=== PATIENT | female | born 1965 | race Caucasian/White ===

== ENCOUNTER 2021-08-10 11:04 | Emergency (ER) | payer OTHER ==
[2021-08-10 12:02] LABS: Absolute Neutrophil Ct (ANC) 2.44 (1.4-6.9); BASOPHIL % 0.7 % (0.0-0.4); Basophil (Absolute #) 0.03 (0-0.4); Eosinophil % 3.3 % (0.00-5.0); Eosinophil (Absolute #) 0.14 (0-0.5); Hematocrit 39.9 % (35-47); Hemoglobin 13.4 gm/dl (12.0-16.0); Lymphocyte (Absolute #) 0.93 (1.0-4.6); Lymphocytes % 21.7 % (24.0-44.0); Mean Corpuscular Hemoglobin 34.3 pg (26-32); Mean Corpuscular Hgb Concent. 33.6 g/dl (32-36); Mean Platelet Volume 9.7 fl (7.5-11.0); Monocyte (Absolute #) 0.74 (0.0-1.3); Monocytes % 17.3 % (0.0-12.0); Platelet Count 111 K/mm3 (150-450); Red Blood Count 3.91 M/mm3 (4.1-5.4); Red Cell Distribution Width 14.9 % (11.5-14.0); White Blood Count 4.3 K/mm3 (4.0-10.5)
[2021-08-10 12:20] LABS: ALBUMIN 2.7 g/dL (3.5-5.0); ALKALINE PHOSPHATASE 142 U/L (38-126); ANION GAP 10.2 MEQ/L (5-15); BLOOD UREA NITROGEN 7 mg/dL (7-17); CHLORIDE 105 mmol/L (98-107); Calcium 8.6 mg/dL (8.4-10.2); Carbon Dioxide 26 mmol/L (22-30); Creatinine 1 0.39 mg/dL (0.52-1.04); EST GLOMERULAR FILTRATION RATE > 60.0 ML/MIN; Glucose 92 mg/dL (74-106); LIPASE 220 U/L (23-300); MAGNESIUM 1.8 mg/dL (1.6-2.3); NT PRO BNP 73.1 pg/mL (0-900); Potassium 4.2 mmol/L (3.5-5.1); SGOT/AST 48 U/L (14-36); SGPT/ALT 31 U/L (0-35); SODIUM 137 mmol/L (137-145); Total Protein 6.1 g/dL (6.3-8.2)
[2021-08-10] MEDS ORDERED: Lasix 40 MG/4 ML IV ONE (13:09)
--- NOTE | 2021-08-10 13:13 | ERPHSYRPT ---
- History of Present Illness Time Seen by Provider: 08/10/21 11:50 Historian: patient Exam Limitations: no limitations Patient Subjective Stated Complaint: Pt states that she fell last month and ever since her abdomen has been swelling, Dr. Mims sent her for a CT in [place] yesterday and also and US at [facility] yesterday, US shows cirrhotic liver with 4 quadrant ascites, pt denies having any liver issues, on Saturday she weighed 284lbs and today she weighs 295 lbs and states that last month she weighed 252lbs Triage Nursing Assessment: Pt brought to the ER by her , hypertension, rates abdominal pain as 7/10 when she tries to move, +3 pitting edema to lower extremity, states that her abdomen hs grown 3x it's normal size in the past month, reports that it is getting harder to breath with her abdomen pushing up into her lungs, skin is hyperpigmented, eyes are clear and sclera is white Physician History: 56 years old female with history of hypertension, hyperlipidemia, diabetes mellitus presented in the ER with chief complaint of increasing generalized abdominal distention but some discomfort for the last 3 to 4 weeks. Patient reports she fell 4 weeks ago and later on noticed having worsening abdominal distention with swelling of bilateral lower extremities along with some heartburns and nausea without vomiting. She was seen outpatient and had ultrasound done which showed finding consistent with cirrhosis and some ascites and CT confirmed large ascites with cirrhosis and anasarca picture. Patient report because of increased abdominal girth she is having some shortness of breath with activity as well but denies any chest pain or palpitations. No fever or chills reported. Denies any history of alcohol abuse. No previous history of liver issues. Timing/Duration: week(s) (3), constant, gradual onset, worse Activities at Onset: activity, rest Quality: tightness Abdominal Pain Onset Location: generalized abdomen Pain Radiation: no radiation Severity of Pain-Max: moderate Severity of Pain-Current: moderate Modifying Factors: Improves With: nothing Associated Symptoms: heartburn, nausea, shortness of breath, weakness Previous symptoms: no prior history Allergies/Adverse Reactions: No Known Drug Allergies Allergy (Verified 08/10/21 11:31) Home Medications: Citalopram Hydrobromide 20 mg* [ceLEXa 20 MG] 20 mg PO DAILY 08/10/21 [History] Gabapentin [Neurontin] 600 mg PO HS 08/10/21 [History] Glimepiride 4 mg [Amaryl 4 mg] 6 mg PO DAILY 08/10/21 [History] Insulin Glargine,Hum.rec.anlog [Omer Lynch Solostar] 60 unit SQ HS 08/10/21 [History] Lisinopril 5 mg [Zestril 5 MG] 5 mg PO DAILY 08/10/21 [History] Metformin HCl 500 mg [Glucophage 500 MG] 1,000 mg PO BIDWM 08/10/21 [History] clonazePAM [Clonazepam] 1 mg PO HS 08/10/21 [History] Travel Risk - International Travel Have you traveled outside of the country in past 3 weeks: No - Coronavirus Screening Are you exhibiting any of the following symptoms?: No Close contact with a COVID-19 positive Pt in past 14-21 Days: No - Vaccine Status Have you recieved a Covid-19 vaccination: Yes Supervisor Mixing: [place] - Vaccination Dates Date of 2cond Vaccination (if applicable): 07/2021 - Review of Systems Constitutional: Fatigue, Weakness Eyes: No Symptoms Ears, Nose, & Throat: No Symptoms Respiratory: No Symptoms Cardiac: No Symptoms Abdominal/Gastrointestinal: Abdominal Pain, Nausea Genitourinary Symptoms: No Symptoms Musculoskeletal: Myalgias Skin: No Symptoms Neurological: No Symptoms Psychological: No Symptoms Endocrine: No Symptoms Hematologic/Lymphatic: No Symptoms Immunological/Allergic: No Symptoms - Past Medical History Pertinent Past Medical History: Yes Endocrine Medical History: Diabetes Type II - Past Surgical History Past Surgical History: Yes Gastrointestinal: Cholecystectomy Other Surgical History: ablasion - Social History Smoking Status: Current every day smoker Exposure to second hand smoke: Yes Drug Use: none Patient Lives Alone: No - Female History Hx Now: No - Nursing Vital Signs Nursing Vital Signs: Initial Vital Signs Temperature 98.6 F 08/10/21 11:19 Pulse Rate 84 08/10/21 11:19 Blood Pressure 152/71 08/10/21 11:19 O2 Sat by Pulse Oximetry 98 08/10/21 11:19 Pain Scale Pain Intensity 7 - Physical Exam General Appearance: no apparent distress, alert Eye Exam: PERRL/EOMI, eyes nml inspection Ears, Nose, Throat Exam: normal ENT inspection, pharynx normal Neck Exam: normal inspection, non-tender, full range of motion Respiratory Exam: normal breath sounds, lungs clear Cardiovascular Exam: regular rate/rhythm, normal heart sounds, edema Gastrointestinal/Abdomen Exam: soft, tenderness (Minimal generalized.), distention Back Exam: normal inspection, normal range of motion Extremity Exam: normal range of motion, pelvis stable, pedal edema Neurologic Exam: alert, oriented x 3, cooperative Skin Exam: normal color SpO2 Interpretation: normal SpO2: 98 O2 Delivery: Room Air Ordered Tests: Active Orders 24 hr Category Date Time Status CBC W DIFF Stat Lab 08/10/21 11:55 Completed CMP Stat Lab 08/10/21 11:55 Completed LIPASE Stat Lab 08/10/21 11:55 Completed MAGNESIUM Stat Lab 08/10/21 11:55 Completed NT PRO BNP Stat Lab 08/10/21 11:55 Completed PROTIME WITH INR Stat Lab 08/10/21 12:52 Completed PTT Stat Lab 08/10/21 12:52 Completed Medication Summary Discontinued Medications Generic Name Dose Route Start Last Admin Trade Name Jes PRN Reason Stop Dose Admin Furosemide 60 mg 08/10/21 13:09 08/10/21 13:17 Lasix 40 Mg/4 Ml IV 08/10/21 13:10 60 mg STAT ONE Administration Furosemide Confirm 08/10/21 13:14 Lasix 40 Mg/4 Ml Administered 08/10/21 13:15 Dose 80 mg .ROUTE .[place]-MED ONE Lab/Rad Data: Laboratory Result Diagrams 08/10/21 11:55 08/10/21 11:55 Laboratory Results 08/10/21 08/10/21 08/10/21 Range/Units 12:52 11:55 11:55 WBC (4.0-10.5) K/mm3 RBC (4.1-5.4) M/mm3 Hgb (12.0-16.0) gm/dl Hct (35-47) % MCV (78-100) fl MCH (26-32) pg MCHC (32-36) g/dl RDW (11.5-14.0) % Plt Count (150-450) K/mm3 MPV (7.5-11.0) fl Gran % (36.0-66.0) % Eos # (Auto) (0-0.5) Absolute Lymphs (auto) (1.0-4.6) Absolute Monos (auto) (0.0-1.3) Lymphocytes % (24.0-44.0) % Monocytes % (0.0-12.0) % Eosinophils % (0.00-5.0) % Basophils % (0.0-0.4) % Absolute Granulocytes (1.4-6.9) Basophils # (0-0.4) PT 18.6 H (9.4-12.5) SECONDS INR 1.58 (0.8-3.0) APTT 37.1 H (25.1-36.5) SECONDS Sodium 137 (137-145) mmol/L Potassium 4.2 (3.5-5.1) mmol/L Chloride 105 (98-107) mmol/L Carbon Dioxide 26 (22-30) mmol/L Anion Gap 10.2 (5-15) MEQ/L BUN 7 (7-17) mg/dL Creatinine 0.39 L (0.52-1.04) mg/dL Estimated GFR > 60.0 ML/MIN Glucose 92 (74-106) mg/dL Calcium 8.6 (8.4-10.2) mg/dL Magnesium 1.8 (1.6-2.3) mg/dL Total Bilirubin 3.50 H (0.2-1.3) mg/dL AST 48 H (14-36) U/L ALT 31 (0-35) U/L Alkaline Phosphatase 142 H (38-126) U/L Ammonia 51 H (9-30) umol/L NT-Pro-B Natriuret Pep 73.1 (0-900) pg/mL Serum Total Protein 6.1 L (6.3-8.2) g/dL Albumin 2.7 L (3.5-5.0) g/dL Lipase 220 (23-300) U/L 08/10/21 Range/Units 11:55 WBC 4.3 (4.0-10.5) K/mm3 RBC 3.91 L (4.1-5.4) M/mm3 Hgb 13.4 (12.0-16.0) gm/dl Hct 39.9 (35-47) % MCV 102.0 H (78-100) fl MCH 34.3 H (26-32) pg MCHC 33.6 (32-36) g/dl RDW 14.9 H (11.5-14.0) % Plt Count 111 L (150-450) K/mm3 MPV 9.7 (7.5-11.0) fl Gran % 57.0 (36.0-66.0) % Eos # (Auto) 0.14 (0-0.5) Absolute Lymphs (auto) 0.93 L (1.0-4.6) Absolute Monos (auto) 0.74 (0.0-1.3) Lymphocytes % 21.7 L (24.0-44.0) % Monocytes % 17.3 H (0.0-12.0) % Eosinophils % 3.3 (0.00-5.0) % Basophils % 0.7 (0.0-0.4) % Absolute Granulocytes 2.44 (1.4-6.9) Basophils # 0.03 (0-0.4) PT (9.4-12.5) SECONDS INR (0.8-3.0) APTT (25.1-36.5) SECONDS Sodium (137-145) mmol/L Potassium (3.5-5.1) mmol/L Chloride (98-107) mmol/L Carbon Dioxide (22-30) mmol/L Anion Gap (5-15) MEQ/L BUN (7-17) mg/dL Creatinine (0.52-1.04) mg/dL Estimated GFR ML/MIN Glucose (74-106) mg/dL Calcium (8.4-10.2) mg/dL Magnesium (1.6-2.3) mg/dL Total Bilirubin (0.2-1.3) mg/dL AST (14-36) U/L ALT (0-35) U/L Alkaline Phosphatase (38-126) U/L Ammonia (9-30) umol/L NT-Pro-B Natriuret Pep (0-900) pg/mL Serum Total Protein (6.3-8.2) g/dL Albumin (3.5-5.0) g/dL Lipase (23-300) U/L - Progress Progress: unchanged Progress Note: 08/10/21 13:29 56-year-old is evaluated for increasing abdominal distention with ascites and no previous history of liver issues. She has normal white count, chemistries showed bilirubin of 3.5 with no markedly deranged transaminases. I have obtained CT and ultrasound done yesterday which showed hepatic cirrhosis with portal hypertension and splenomegaly with prominent mesenteric vessels and no hepatic cyst or mass. Also has anasarca with bowel wall thickening secondary to anasarca. She is given IV Lasix. I have discussed with her primary care who recommended transfer to facility with GI services. I have disc ussed with Dr. Humphreys at [facility], reviewed history, current work-up and patient is accepted for transfer. Plan discussed with patient who understand and agrees with it. Discussed with Dr.: Selvin, Other Counseled pt/family regarding: lab results, diagnosis, rad results - Departure Departure Disposition: Transfer Clinical Impression: Anasarca Cirrhosis of liver with ascites Qualifiers: Hepatic cirrhosis type: unspecified hepatic cirrhosis Qualified Code(s): K74.60 - Unspecified cirrhosis of liver; R18.8 - Other ascites Condition: Stable Critical Care Time: No Referrals: MILES MIMS MD [Primary Care Provider] -
[2021-08-10] MEDS ORDERED: Lasix 40 MG/4 ML ONE (13:14)
[2021-08-10 13:20] LABS: INR 1.58 (0.8-3.0); PROTIME 18.6 SECONDS (9.4-12.5)
[2021-08-10 13:23] LABS: PTT 37.1 SECONDS (25.1-36.5)
[2021-08-10 14:20] VITALS: BP 150/89
[2021-08-10 15:22] VITALS: PULSE 86
[2021-08-10 17:19] VITALS: O2SAT 95
== END 2021-08-10 19:15 | disposition short-term general hospital (02) ==
LOC: ED 11:04
DX: R60.1 Generalized edema (principal); K74.60 Unspecified cirrhosis of liver; I10 Essential (primary) hypertension; E78.5 Hyperlipidemia, unspecified; E11.9 Type 2 diabetes mellitus without complications; Z79.899 Other long term (current) drug therapy; R14.0 Abdominal distension (gaseous); R12 Heartburn; R11.0 Nausea; R06.02 Shortness of breath; R53.83 Other fatigue
CPT/HCPCS: 36415; 80053; 82140; 83690; 83735; 83880; 85025; 85610; 85730; 96374; 99284; J1940

== ENCOUNTER 2021-10-29 18:21 | Observation (INO) | payer MEDICAID ==
[2021-10-29] MEDS ORDERED: Sodium Chloride 0.9% 1000 ML 1,000 ML IV SCH ×2 (18:30→23:45)
--- NOTE | 2021-10-29 18:31 | ERPHSYRPT ---
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 She was taking a bath when suddenly she passed out and since then she was she was little bit confused according to the family members and EMS. Patient was diagnosed with liver cirrhosis 3 to 4 months ago and afterwards patient had developed hepatorenal syndrome for which patient is also undergoing dialysis 3 times a week. Patient has been on liver transplant list. Patient is alert awake oriented in the emergency room but does feel little bit confused. Patient is also getting peritoneal ascites tapping once or once a week. In ER patient is alert awake and denies any other symptoms. (MILES MIMS) Allergies/Adverse Reactions: No Known Drug Allergies Allergy (Verified 10/29/21 18:46) Home Medications: Citalopram Hydrobromide 20 mg* [ceLEXa 20 MG] 20 mg PO DAILY 08/10/21 [History] Gabapentin [Neurontin] 600 mg PO HS 08/10/21 [History] Glimepiride 4 mg [Amaryl 4 mg] 6 mg PO DAILY 08/10/21 [History] Insulin Glargine,Hum.rec.anlog [Omer Rivera] 60 unit SQ HS 08/10/21 [History] Lisinopril 5 mg [Zestril 5 MG] 5 mg PO DAILY 08/10/21 [History] Metformin HCl 500 mg [Glucophage 500 MG] 1,000 mg PO BIDWM 08/10/21 [History] clonazePAM [Clonazepam] 1 mg PO HS 08/10/21 [History] Travel Risk - Vaccine Status Have you recieved a Covid-19 vaccination: Yes Food And Beverage Assistant: Moderna - Vaccination Dates Date of 2cond Vaccination (if applicable): 07/2021 <MILES MIMS - Last Filed: 10/29/21 18:31> - Review of Systems Constitutional: Lethargy, Weakness, No Fever, No Chills Eyes: No Symptoms Ears, Nose, & Throat: No Symptoms Respiratory: No Cough, No Dyspnea Cardiac: No Chest Pain, No Edema, No Syncope Abdominal/Gastrointestinal: Appetite Changes, Other (abdominal distension), No Abdominal Pain, No Nausea, No Vomiting, No Diarrhea Genitourinary Symptoms: No Dysuria Musculoskeletal: No Back Pain, No Neck Pain Skin: No Rash Neurological: Dizziness, Lethargy, No Focal Weakness, No Sensory Changes Psychological: No Symptoms Endocrine: No Symptoms All Other Systems: Reviewed and Negative <FELICITA - Last Filed: 10/29/21 18:31> - Past Medical History Pertinent Past Medical History: Yes Endocrine Medical History: Diabetes Type II GI Medical History: Cirrhosis History: Renal Disease Other Medical History: liver failure - Past Surgical History Past Surgical History: Yes Gastrointestinal: Cholecystectomy Other Surgical History: ablasion - Social History Smoking Status: Current every day smoker Exposure to second hand smoke: Yes Drug Use: none Patient Lives Alone: No <FELICITA - Last Filed: 10/29/21 18:31> - Physical Exam General Appearance: mild distress, alert, lethargy Eye Exam: PERRL/EOMI, eyes nml inspection Ears, Nose, Throat Exam: normal ENT inspection, TMs normal, pharynx normal, moist mucous membranes Neck Exam: normal inspection, non-tender, supple, full range of motion Respiratory Exam: normal breath sounds, lungs clear, No respiratory distress Cardiovascular Exam: regular rate/rhythm, normal heart sounds, normal peripheral pulses Gastrointestinal/Abdomen Exam: soft, other (large ascites), No tenderness, No mass Back Exam: normal inspection, normal range of motion, No CVA tenderness, No vertebral tenderness Extremity Exam: normal inspection, normal range of motion, pelvis stable Neurologic Exam: alert, oriented x 3, cooperative, normal mood/affect, nml cerebellar function, nml station & gait, sensation nml, No motor deficits Skin Exam: normal color, warm, dry, No rash Lymphatic Exam: No adenopathy <FELICITA - Last Filed: 10/29/21 18:31> - Nursing Vital Signs Nursing Vital Signs: Initial Vital Signs Temperature 98.5 F 10/29/21 18:24 Pulse Rate 76 10/29/21 18:24 Blood Pressure 162/83 10/29/21 18:24 O2 Sat by Pulse Oximetry 98 10/29/21 18:24 Pain Scale Pain Intensity 0 - Course Nursing assessment & vital signs reviewed: Yes EKG Interpreted by Me: Sinus Rhythm <MILES MIMS - Last Filed: 10/29/21 18:31> - Course EKG Interpreted by Me: RATE (77), NORMAL AXIS, NORMAL INTERVALS, NORMAL ST-T - Radiology Exams Abdomen X-ray Interpretation: Interpreted by me, Other (No evidence of obstruction or perforation.) <BHAVESH VOGT - Last Filed: 10/29/21 20:51> Ordered Tests: Active Orders 24 hr Category Date Time Status EKG-ER Only STAT Care 10/29/21 18:26 Active KUB Stat Exams 10/29/21 18:27 Taken AMYLASE Stat Lab 10/29/21 18:55 Completed BLOOD CULTURE Stat Lab 10/29/21 19:00 Received CBC W DIFF Stat Lab 10/29/21 18:55 Completed CMP Stat Lab 10/29/21 18:55 Completed LIPASE Stat Lab 10/29/21 18:55 Completed Lactic Acid Stat Lab 10/29/21 18:55 Completed Manual Differential NC Stat Lab 10/29/21 18:55 Completed PROTIME WITH INR Stat Lab 10/29/21 18:55 Completed TROPONIN Q3H Lab 10/29/21 19:00 Completed TROPONIN Q3H Lab 10/29/21 21:30 Ordered TROPONIN Q3H Lab 10/30/21 00:30 Ordered TROPONIN Q3H Lab 10/30/21 03:30 Ordered TROPONIN Q3H Lab 10/30/21 06:30 Ordered UA W/RFX UR CULTURE Stat Lab 10/29/21 18:26 Ordered Medication Summary Generic Name Dose Route Start Last Admin Trade Name Freq PRN Reason Stop Dose Admin Sodium Chloride 1,000 mls @ 50 mls/hr 10/29/21 18:30 10/29/21 19:16 Sodium Chloride 0.9% 1000 Ml IV 11/28/21 18:29 50 mls/hr .Q20H SAWYER Administration Lab/Rad Data: Laboratory Result Diagrams 10/29/21 18:55 10/29/21 18:55 Laboratory Results 10/29/21 10/29/2121 Range/Units 19:00 18:56 18:55 WBC (4.0-10.5) K/mm3 RBC (4.1-5.4) M/mm3 Hgb (12.0-16.0) gm/dl Hct (35-47) % MCV (78-100) fl MCH (26-32) pg MCHC (32-36) g/dl RDW (11.5-14.0) % Plt Count (150-450) K/mm3 MPV (7.5-11.0) fl PT 21.3 H (9.4-12.5) SECONDS INR 1.81 (0.8-3.0) Sodium (137-145) mmol/L Potassium (3.5-5.1) mmol/L Chloride (98-107) mmol/L Carbon Dioxide (22-30) mmol/L Anion Gap (5-15) MEQ/L BUN (7-17) mg/dL Creatinine (0.52-1.04) mg/dL Estimated GFR ML/MIN Glucose (74-106) mg/dL Lactic Acid (0.4-2.0) Calcium (8.4-10.2) mg/dL Total Bilirubin (0.2-1.3) mg/dL AST (14-36) U/L ALT (0-35) U/L Alkaline Phosphatase (38-126) U/L Ammonia 147 H (9-30) umol/L Troponin I < 0.012 (0.000-0.034) ng/mL Serum Total Protein (6.3-8.2) g/dL Albumin (3.5-5.0) g/dL Amylase (30-110) U/L Lipase (23-300) U/L 10/29/21 10/29/21 10/29/21 Range/Units 18:55 18:55 18:55 WBC 7.8 (4.0-10.5) K/mm3 RBC 2.80 L (4.1-5.4) M/mm3 Hgb 9.1 L (12.0-16.0) gm/dl Hct 29.0 L (35-47) % MCV 103.6 H (78-100) fl MCH 32.5 H (26-32) pg MCHC 31.4 L (32-36) g/dl RDW 15.3 H (11.5-14.0) % Plt Count 110 L (150-450) K/mm3 MPV 9.5 (7.5-11.0) fl PT (9.4-12.5) SECONDS INR (0.8-3.0) Sodium 136 L (137-145) mmol/L Potassium 3.8 (3.5-5.1) mmol/L Chloride 102 (98-107) mmol/L Carbon Dioxide 27 (22-30) mmol/L Anion Gap 10.6 (5-15) MEQ/L BUN 32 H (7-17) mg/dL Creatinine 3.24 H (0.52-1.04) mg/dL Estimated GFR 15.6 ML/MIN Glucose 148 H (74-106) mg/dL Lactic Acid 1.7 (0.4-2.0) Calcium 8.4 (8.4-10.2) mg/dL Total Bilirubin 2.80 H (0.2-1.3) mg/dL AST 49 H (14-36) U/L ALT 34 (0-35) U/L Alkaline Phosphatase 183 H (38-126) U/L Ammonia (9-30) umol/L Troponin I (0.000-0.034) ng/mL Serum Total Protein 6.2 L (6.3-8.2) g/dL Albumin 2.6 L (3.5-5.0) g/dL Amylase 185 H (30-110) U/L Lipase 1597 H (23-300) U/L - Progress Progress: unchanged Discussed with : Selvin Will see patient in: hospital (observation) <BHAVESH VOGT - Last Filed: 10/29/21 20:51> - Progress Progress Note: 10/29/21 20:49 We attempted to transfer this patient to [place] where she sees a biofuels plant manager and gastroenterology and transfer was not excepted. We talked to Dr. Sabino knox and we are keeping her here until the a.m. Thank you (BHAVESH VOGT) <MILES MIMS - Last Filed: 10/29/21 18:31> - Departure Departure Disposition: Observation Critical Care Time: No <BHAVESH VOGT - Last Filed: 10/29/21 20:51> - Departure Clinical Impression: Hepatic encephalopathy Condition: Fair Referrals: MILES MIMS MD [Primary Care Provider] - Follow up/PCP as directed
[2021-10-29 18:59] LABS: Hemoglobin 9.1 gm/dl (12.0-16.0); Mean Cell Volume 103.6 fl (78-100); Mean Corpuscular Hemoglobin 32.5 pg (26-32); Mean Corpuscular Hgb Concent. 31.4 g/dl (32-36); Mean Platelet Volume 9.5 fl (7.5-11.0); Platelet Count 110 K/mm3 (150-450); Red Cell Distribution Width 15.3 % (11.5-14.0); White Blood Count 7.8 K/mm3 (4.0-10.5)
[2021-10-29 19:07] LABS: INR 1.81 (0.8-3.0); PROTIME 21.3 SECONDS (9.4-12.5)
[2021-10-29] MEDS ORDERED: Sodium Chloride 0.9% 1000 ML 1,000 ML ONE (19:10)
[2021-10-29 19:11] LABS: ALBUMIN 2.6 g/dL (3.5-5.0); ANION GAP 10.6 MEQ/L (5-15); BILIRUBIN,TOTAL 2.8 mg/dL (0.2-1.3); Calcium 8.4 mg/dL (8.4-10.2); Creatinine 1 3.24 mg/dL (0.52-1.04); EST GLOMERULAR FILTRATION RATE 15.6 ML/MIN; Potassium 3.8 mmol/L (3.5-5.1); Total Protein 6.2 g/dL (6.3-8.2)
[2021-10-29] MEDS ORDERED: Flagyl 500 MG PO SCH ×2 (22:00→23:45)
[2021-10-29 22:35] LABS: INFLUENZA A NEGATIVE (NEGATIVE); INFLUENZA B NEGATIVE (NEGATIVE); RESPIRATORY SYNCTIAL VIRUS NEGATIVE (Negative); SARS-CoV-2 Xpert Express NEGATIVE (NEGATIVE)
[2021-10-29 23:36] LABS: Eosinophil 2 % (0.00-3.0); Hypochromia 2+; Lymphocytes 13 % (24-44); Monocyte 6 % (0.0-12.0); Neutrophils 79 % (36.0-66.0); Platelet Estimate NORMAL (NORMAL); Total Cells Counted 100
[2021-10-30 06:17] LABS: Absolute Neutrophil Ct (ANC) 4.18 (1.4-6.9); BASOPHIL % 0.3 % (0.0-0.4); Basophil (Absolute #) 0.02 (0-0.4); Eosinophil % 3.2 % (0.00-5.0); Eosinophil (Absolute #) 0.22 (0-0.5); Hematocrit 26.9 % (35-47); Hemoglobin 8.3 gm/dl (12.0-16.0); Lymphocyte (Absolute #) 1.48 (1.0-4.6); Lymphocytes % 21.5 % (24.0-44.0); Mean Cell Volume 104.7 fl (78-100); Mean Corpuscular Hemoglobin 32.3 pg (26-32); Mean Corpuscular Hgb Concent. 30.9 g/dl (32-36); Mean Platelet Volume 9.6 fl (7.5-11.0); Monocyte (Absolute #) 0.98 (0.0-1.3); Monocytes % 14.2 % (0.0-12.0); Neutrophil % 60.8 % (36.0-66.0); Platelet Count 108 K/mm3 (150-450); Red Blood Count 2.57 M/mm3 (4.1-5.4); Red Cell Distribution Width 15.5 % (11.5-14.0); White Blood Count 6.9 K/mm3 (4.0-10.5)
[2021-10-30 06:44] LABS: ALBUMIN 2.4 g/dL (3.5-5.0); ANION GAP 10.8 MEQ/L (5-15); BILIRUBIN,TOTAL 3.7 mg/dL (0.2-1.3); Calcium 8.5 mg/dL (8.4-10.2); Creatinine 1 3.13 mg/dL (0.52-1.04); EST GLOMERULAR FILTRATION RATE 16.3 ML/MIN; Potassium 3.7 mmol/L (3.5-5.1); Total Protein 5.9 g/dL (6.3-8.2)
[2021-10-30 07:25] VITALS: BP 128/56; PULSE 73; O2SAT 96
[2021-10-30] MEDS ORDERED: Glucophage 500 MG PO SCH (08:00)
--- NOTE | 2021-10-30 08:04 | PCM.HP ---
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 She was taking a bath when suddenly she passed out and since then she was she was little bit confused according to the family members and EMS. Patient was diagnosed with liver cirrhosis 3 to 4 months ago and afterwards patient had developed hepatorenal syndrome for which patient is also undergoing dialysis 3 times a week. Patient has been on liver transplant list. Patient is alert awake oriented in the emergency room but does feel little bit confused. Patient is also getting peritoneal ascites tapping once or once a week. In ER patient is alert awake and denies any other symptoms. - Review of Systems Constitutional: No Fever, No Chills Eyes: No Symptoms Ears, Nose, & Throat: No Symptoms Respiratory: No Cough, No Short Of Breath Cardiac: No Chest Pain, No Edema, No Syncope Abdominal/Gastrointestinal: Abdominal Pain, Other (abdominal distension), No Nausea, No Vomiting, No Diarrhea Genitourinary Symptoms: No Dysuria Musculoskeletal: No Back Pain, No Neck Pain Skin: No Rash Neurological: No Dizziness, No Focal Weakness, No Sensory Changes Psychological: No Symptoms Endocrine: No Symptoms Hematologic/Lymphatic: No Symptoms Immunological/Allergic: No Symptoms Medications & Allergies Home Medications: Home Medication List Citalopram Hydrobromide 20 mg* [ceLEXa 20 MG] 20 mg PO DAILY 08/10/21 [History Confirmed 08/10/21] Gabapentin [Neurontin] 600 mg PO HS 08/10/21 [History Confirmed 08/10/21] Glimepiride 4 mg [Amaryl 4 mg] 6 mg PO DAILY 08/10/21 [History Confirmed 08/10/21] Insulin Glargine,Hum.rec.anlog [Omer Rivera] 60 unit SQ HS 08/10/21 [History Confirmed 08/10/21] Lisinopril 5 mg [Zestril 5 MG] 5 mg PO DAILY 08/10/21 [History Confirmed 08/10/21] Metformin HCl 500 mg [Glucophage 500 MG] 1,000 mg PO BIDWM 08/10/21 [History Confirmed 08/10/21] clonazePAM [Clonazepam] 1 mg PO HS 08/10/21 [History Confirmed 08/10/21] Allergies/Adverse Reactions: Allergies Allergy/AdvReac Type Severity Reaction Status Date / Time No Known Drug Allergies Allergy Verified 10/29/21 18:46 - Past Medical History Past Medical History: Yes Endocrine Medical History: Diabetes Type II GI Medical History: Cirrhosis, Gallbladder Disease History: Renal Disease Comment: liver failure - Female History Are you now?: No (N) - Past Surgical History Past Surgical History: Yes Neuro Surgical History: No Pertinent History GI Surgical History: Cholecystectomy Other Surgical History: ablasion - Social History Smoking Status: Current every day smoker Exposure to second hand smoke: Yes Alcohol: None Drug Use: none - Physical Exam Vital Signs: Vital Signs - 24 hr Temp Pulse Resp BP Pulse Ox 10/30/21 07:24 98.6 F 73 16 128/56 96 10/30/21 04:00 98.4 F 75 16 124/67 95 10/30/21 00:20 98.7 F 76 18 136/60 95 10/29/21 23:34 78 114/69 95 10/29/21 23:33 81 111/73 95 10/29/21 22:06 71 111/73 94 L 10/29/21 21:56 71 18 111/64 94 L 10/29/21 18:24 98.5 F 76 162/83 98 General Appearance: no apparent distress, alert Neurologic Exam: alert, oriented x 3, cooperative, normal mood/affect, nml cerebellar function, nml station & gait, sensation nml, No motor deficits Eye Exam: PERRL/EOMI, eyes nml inspection Ears, Nose, Throat Exam: normal ENT inspection, TMs normal, pharynx normal, moist mucous membranes Neck Exam: normal inspection, non-tender, supple, full range of motion Respiratory Exam: diminished breath sounds, crackles/rales, rhonchi, No respiratory distress Cardiovascular Exam: regular rate/rhythm, normal heart sounds, normal peripheral pulses Gastrointestinal/Abdomen Exam: soft, normal bowel sounds, hepatomegaly, other (ascites), No tenderness, No mass Back Exam: normal inspection, normal range of motion, No CVA tenderness, No vertebral tenderness Extremity Exam: normal inspection, normal range of motion, pelvis stable Skin Exam: normal color, warm, dry, No rash Lymphatic Exam: No adenopathy Results - Labs Lab/Micro Results: Lab Results-Last 24 Hours 10/29/21 10/29/21 10/29/21 Range/Units 18:55 18:55 18:55 WBC 7.8 (4.0-10.5) K/mm3 RBC 2.80 L (4.1-5.4) M/mm3 Hgb 9.1 L (12.0-16.0) gm/dl Hct 29.0 L (35-47) % MCV 103.6 H (78-100) fl MCH 32.5 H (26-32) pg MCHC 31.4 L (32-36) g/dl RDW 15.3 H (11.5-14.0) % Plt Count 110 L (150-450) K/mm3 MPV 9.5 (7.5-11.0) fl Gran % (36.0-66.0) % Eos # (Auto) (0-0.5) Absolute Lymphs (auto) (1.0-4.6) Absolute Monos (auto) (0.0-1.3) Lymphocytes % (24.0-44.0) % Monocytes % (0.0-12.0) % Eosinophils % (0.00-5.0) % Basophils % (0.0-0.4) % Absolute Granulocytes (1.4-6.9) Segmented Neutrophils 79 H (36.0-66.0) % Lymphocytes (Manual) 13 L (24-44) % Monocytes (Manual) 6 (0.0-12.0) % Eosinophils (Manual) 2 (0.00-3.0) % Basophils # (0-0.4) Hypochromia 2+ Platelet Estimate NORMAL (NORMAL) RBC Morphology ABNORMAL PT (9.4-12.5) SECONDS INR (0.8-3.0) Sodium 136 L (137-145) mmol/L Potassium 3.8 (3.5-5.1) mmol/L Chloride 102 (98-107) mmol/L Carbon Dioxide 27 (22-30) mmol/L Anion Gap 10.6 (5-15) MEQ/L BUN 32 H (7-17) mg/dL Creatinine 3.24 H (0.52-1.04) mg/dL Estimated GFR 15.6 ML/MIN Glucose 148 H (74-106) mg/dL POC Glucometer (74 to 106) mg/dL Lactic Acid 1.7 (0.4-2.0) Calcium 8.4 (8.4-10.2) mg/dL Total Bilirubin 2.80 H (0.2-1.3) mg/dL AST 49 H (14-36) U/L ALT 34 (0-35) U/L Alkaline Phosphatase 183 H (38-126) U/L Ammonia (9-30) umol/L Troponin I (0.000-0.034) ng/mL Serum Total Protein 6.2 L (6.3-8.2) g/dL Albumin 2.6 L (3.5-5.0) g/dL Amylase 185 H (30-110) U/L Lipase 1597 H (23-300) U/L Influenza Type A Ag (NEGATIVE) Influenza Type B Ag (NEGATIVE) RSV (PCR) (Negative) SARS-CoV-2 (PCR) (NEGATIVE) 10/29/21 10/29/21 10/29/21 Range/Units 18:55 18:56 19:00 WBC (4.0-10.5) K/mm3 RBC (4.1-5.4) M/mm3 Hgb (12.0-16.0) gm/dl Hct (35-47) % MCV (78-100) fl MCH (26-32) pg MCHC (32-36) g/dl RDW (11.5-14.0) % Plt Count (150-450) K/mm3 MPV (7.5-11.0) fl Gran % (36.0-66.0) % Eos # (Auto) (0-0.5) Absolute Lymphs (auto) (1.0-4.6) Absolute Monos (auto) (0.0-1.3) Lymphocytes % (24.0-44.0) % Monocytes % (0.0-12.0) % Eosinophils % (0.00-5.0) % Basophils % (0.0-0.4) % Absolute Granulocytes (1.4-6.9) Segmented Neutrophils (36.0-66.0) % Lymphocytes (Manual) (24-44) % Monocytes (Manual) (0.0-12.0) % Eosinophils (Manual) (0.00-3.0) % Basophils # (0-0.4) Hypochromia Platelet Estimate (NORMAL) RBC Morphology PT 21.3 H (9.4-12.5) SECONDS INR 1.81 (0.8-3.0) Sodium (137-145) mmol/L Potassium (3.5-5.1) mmol/L Chloride (98-107) mmol/L Carbon Dioxide (22-30) mmol/L Anion Gap (5-15) MEQ/L BUN (7-17) mg/dL Creatinine (0.52-1.04) mg/dL Estimated GFR ML/MIN Glucose (74-106) mg/dL POC Glucometer (74 to 106) mg/dL Lactic Acid (0.4-2.0) Calcium (8.4-10.2) mg/dL Total Bilirubin (0.2-1.3) mg/dL AST (14-36) U/L ALT (0-35) U/L Alkaline Phosphatase (38-126) U/L Ammonia 147 H (9-30) umol/L Troponin I < 0.012 (0.000-0.034) ng/mL Serum Total Protein (6.3-8.2) g/dL Albumin (3.5-5.0) g/dL Amylase (30-110) U/L Lipase (23-300) U/L Influenza Type A Ag (NEGATIVE) Influenza Type B Ag (NEGATIVE) RSV (PCR) (Negative) SARS-CoV-2 (PCR) (NEGATIVE) 10/29/21 10/29/21 10/30/21 Range/Units 21:14 21:39 04:55 WBC 6.9 (4.0-10.5) K/mm3 RBC 2.57 L (4.1-5.4) M/mm3 Hgb 8.3 L (12.0-16.0) gm/dl Hct 26.9 L (35-47) % MCV 104.7 H (78-100) fl MCH 32.3 H (26-32) pg MCHC 30.9 L (32-36) g/dl RDW 15.5 H (11.5-14.0) % Plt Count 108 L (150-450) K/mm3 MPV 9.6 (7.5-11.0) fl Gran % 60.8 (36.0-66.0) % Eos # (Auto) 0.22 (0-0.5) Absolute Lymphs (auto) 1.48 (1.0-4.6) Absolute Monos (auto) 0.98 (0.0-1.3) Lymphocytes % 21.5 L (24.0-44.0) % Monocytes % 14.2 H (0.0-12.0) % Eosinophils % 3.2 (0.00-5.0) % Basophils % 0.3 (0.0-0.4) % Absolute Granulocytes 4.18 (1.4-6.9) Segmented Neutrophils (36.0-66.0) % Lymphocytes (Manual) (24-44) % Monocytes (Manual) (0.0-12.0) % Eosinophils (Manual) (0.00-3.0) % Basophils # 0.02 (0-0.4) Hypochromia Platelet Estimate (NORMAL) RBC Morphology PT (9.4-12.5) SECONDS INR (0.8-3.0) Sodium (137-145) mmol/L Potassium (3.5-5.1) mmol/L Chloride (98-107) mmol/L Carbon Dioxide (22-30) mmol/L Anion Gap (5-15) MEQ/L BUN (7-17) mg/dL Creatinine (0.52-1.04) mg/dL Estimated GFR ML/MIN Glucose (74-106) mg/dL POC Glucometer (74 to 106) mg/dL Lactic Acid (0.4-2.0) Calcium (8.4-10.2) mg/dL Total Bilirubin (0.2-1.3) mg/dL AST (14-36) U/L ALT (0-35) U/L Alkaline Phosphatase (38-126) U/L Ammonia (9-30) umol/L Troponin I < 0.012 (0.000-0.034) ng/mL Serum Total Protein (6.3-8.2) g/dL Albumin (3.5-5.0) g/dL Amylase (30-110) U/L Lipase (23-300) U/L Influenza Type A Ag NEGATIVE (NEGATIVE) Influenza Type B Ag NEGATIVE (NEGATIVE) RSV (PCR) NEGATIVE (Negative) SARS-CoV-2 (PCR) NEGATIVE (NEGATIVE) 10/30/21 10/30/21 10/30/21 Range/Units 04:55 05:25 07:08 WBC (4.0-10.5) K/mm3 RBC (4.1-5.4) M/mm3 Hgb (12.0-16.0) gm/dl Hct (35-47) % MCV (78-100) fl MCH (26-32) pg MCHC (32-36) g/dl RDW (11.5-14.0) % Plt Count (150-450) K/mm3 MPV (7.5-11.0) fl Gran % (36.0-66.0) % Eos # (Auto) (0-0.5) Absolute Lymphs (auto) (1.0-4.6) Absolute Monos (auto) (0.0-1.3) Lymphocytes % (24.0-44.0) % Monocytes % (0.0-12.0) % Eosinophils % (0.00-5.0) % Basophils % (0.0-0.4) % Absolute Granulocytes (1.4-6.9) Segmented Neutrophils (36.0-66.0) % Lymphocytes (Manual) (24-44) % Monocytes (Manual) (0.0-12.0) % Eosinophils (Manual) (0.00-3.0) % Basophils # (0-0.4) Hypochromia Platelet Estimate (NORMAL) RBC Morphology PT (9.4-12.5) SECONDS INR (0.8-3.0) Sodium 137 (137-145) mmol/L Potassium 3.7 (3.5-5.1) mmol/L Chloride 104 (98-107) mmol/L Carbon Dioxide 26 (22-30) mmol/L Anion Gap 10.8 (5-15) MEQ/L BUN 34 H (7-17) mg/dL Creatinine 3.13 H (0.52-1.04) mg/dL Estimated GFR 16.3 ML/MIN Glucose 107 H (74-106) mg/dL POC Glucometer 97 (74 to 106) mg/dL Lactic Acid 1.2 (0.4-2.0) Calcium 8.5 (8.4-10.2) mg/dL Total Bilirubin 3.70 H (0.2-1.3) mg/dL AST 46 H (14-36) U/L ALT 30 (0-35) U/L Alkaline Phosphatase 134 H (38-126) U/L Ammonia (9-30) umol/L Troponin I (0.000-0.034) ng/mL Serum Total Protein 5.9 L (6.3-8.2) g/dL Albumin 2.4 L (3.5-5.0) g/dL Amylase (30-110) U/L Lipase (23-300) U/L Influenza Type A Ag (NEGATIVE) Influenza Type B Ag (NEGATIVE) RSV (PCR) (Negative) SARS-CoV-2 (PCR) (NEGATIVE) Accuchecks Date 10/29/21 Time 18:28 - Radiology Impressions Radiology Exams & Impressions: Radiology Procedures Category Date Time Status CHEST 1 VIEW (PORTABLE) Routine Exams 10/30/21 Taken KUB Stat Exams 10/29/21 18:27 Taken - Other Procedures and Tests Respiratory Therapy 10/30/21 00:49 Smoking Cessation Education ONCE Assessment/Plan (1) Hepatorenal failure Current Visit: Yes Status: Acute Assessment & Plan: Chief Complaint Diagnosis hepatic encephalopathy Allergies Allergy/AdvReac Type Severity Reaction Status Date / Time No Known Drug Allergies Allergy Verified 10/29/21 18:46 Vital Signs (Last 24 hours) Temp Pulse Resp BP Pulse Ox 10/30/21 07:24 98.6 F 73 16 128/56 96 10/30/21 04:00 98.4 F 75 16 124/67 95 10/30/21 00:20 98.7 F 76 18 136/60 95 10/29/21 23:34 78 114/69 95 10/29/21 23:33 81 111/73 95 10/29/21 22:06 71 111/73 94 L 10/29/21 21:56 71 18 111/64 94 L 10/29/21 18:24 98.5 F 76 162/83 98 Current Medications Generic Name Dose Route Start Last Admin Trade Name Freq PRN Reason Stop Dose Admin Sodium Chloride 1,000 mls @ 100 mls/hr 10/29/21 23:45 Sodium Chloride 0.9% 1000 Ml IV 11/28/21 23:44 .Q10H SAWYER Ceftriaxone Sodium/Dextrose 1 g in 50 mls @ 100 mls/hr 10/30/21 10:00 Rocephin 1 Gm-D5w 50 Ml Bag IV 11/02/21 09:59 Q24H10 [facility] Metformin HCl 500 mg 10/30/21 08:00 Metformin Hcl 500 Mg Tablet PO 11/29/21 07:59 BIDWM [facility] Metronidazole 250 mg 10/29/21 22:00 Metronidazole 500 Mg Tablet PO 11/28/21 21:59 TID SAWYER Discontinued Medications Generic Name Dose Route Start Last Admin Trade Name Jes PRN Reason Stop Dose Admin Sodium Chloride 1,000 mls @ 50 mls/hr 10/29/21 18:30 10/29/21 19:16 Sodium Chloride 0.9% 1000 Ml IV 11/28/21 18:29 50 mls/hr .Q20H SAWYER Administration Sodium Chloride Confirm 10/29/21 19:10 Sodium Chloride 0.9% 1000 Ml Administered 10/29/21 19:11 Dose 1,000 mls @ ud .ROUTE .STK-MED ONE Intake & Output (Last 24 hours) 10/27/21 10/28/21 10/29/21 10/30/21 11:59 11:59 11:59 11:59 Intake Total 168 Balance 168 Weight 123 kg Microbiology Results (Last 24 hours) 10/29/21 19:00 Blood Blood Culture Gram Stain - Pending 10/29/21 19:00 Blood Blood Culture - Pending 10/29/21 18:55 Blood Blood Culture Gram Stain - Pending 10/29/21 18:55 Blood Blood Culture - Pending Laboratory Results (Last 24 hours) 10/30/21 10/30/21 10/30/21 07:08 05:25 04:55 WBC RBC Hgb Hct MCV MCH MCHC RDW Plt Count MPV Gran % Eos # (Auto) Absolute Lymphs (auto) Absolute Monos (auto) Lymphocytes % Monocytes % Eosinophils % Basophils % Absolute Granulocytes Segmented Neutrophils Lymphocytes (Manual) Monocytes (Manual) Eosinophils (Manual) Basophils # Hypochromia Platelet Estimate RBC Morphology PT INR Sodium 137 Potassium 3.7 Chloride 104 Carbon Dioxide 26 Anion Gap 10.8 BUN 34 H Creatinine 3.13 H Estimated GFR 16.3 Glucose 107 H POC Glucometer 97 Lactic Acid 1.2 Calcium 8.5 Total Bilirubin 3.70 H AST 46 H ALT 30 Alkaline Phosphatase 134 H Ammonia Troponin I Serum Total Protein 5.9 L Albumin 2.4 L Amylase Lipase Influenza Type A Ag Influenza Type B Ag RSV (PCR) SARS-CoV-2 (PCR) 10/30/21 10/29/21 10/29/21 04:55 21:39 21:14 WBC 6.9 RBC 2.57 L Hgb 8.3 L Hct 26.9 L MCV 104.7 H MCH 32.3 H MCHC 30.9 L RDW 15.5 H Plt Count 108 L MPV 9.6 Gran % 60.8 Eos # (Auto) 0.22 Absolute Lymphs (auto) 1.48 Absolute Monos (auto) 0.98 Lymphocytes % 21.5 L Monocytes % 14.2 H Eosinophils % 3.2 Basophils % 0.3 Absolute Granulocytes 4.18 Segmented Neutrophils Lymphocytes (Manual) Monocytes (Manual) Eosinophils (Manual) Basophils # 0.02 Hypochromia Platelet Estimate RBC Morphology PT INR Sodium Potassium Chloride Carbon Dioxide Anion Gap BUN Creatinine Estimated GFR Glucose POC Glucometer Lactic Acid Calcium Total Bilirubin AST ALT Alkaline Phosphatase Ammonia Troponin I < 0.012 Serum Total Protein Albumin Amylase Lipase Influenza Type A Ag NEGATIVE Influenza Type B Ag NEGATIVE RSV (PCR) NEGATIVE SARS-CoV-2 (PCR) NEGATIVE 10/29/21 10/29/21 10/29/21 19:00 18:56 18:55 WBC RBC Hgb Hct MCV MCH MCHC RDW Plt Count MPV Gran % Eos # (Auto) Absolute Lymphs (auto) Absolute Monos (auto) Lymphocytes % Monocytes % Eosinophils % Basophils % Absolute Granulocytes Segmented Neutrophils Lymphocytes (Manual) Monocytes (Manual) Eosinophils (Manual) Basophils # Hypochromia Platelet Estimate RBC Morphology PT 21.3 H INR 1.81 Sodium Potassium Chloride Carbon Dioxide Anion Gap BUN Creatinine Estimated GFR Glucose POC Glucometer Lactic Acid Calcium Total Bilirubin AST ALT Alkaline Phosphatase Ammonia 147 H Troponin I < 0.012 Serum Total Protein Albumin Amylase Lipase Influenza Type A Ag Influenza Type B Ag RSV (PCR) SARS-CoV-2 (PCR) 10/29/21 10/29/21 10/29/21 18:55 18:55 18:55 WBC 7.8 RBC 2.80 L Hgb 9.1 L Hct 29.0 L MCV 103.6 H MCH 32.5 H MCHC 31.4 L RDW 15.3 H Plt Count 110 L MPV 9.5 Gran % Eos # (Auto) Absolute Lymphs (auto) Absolute Monos (auto) Lymphocytes % Monocytes % Eosinophils % Basophils % Absolute Granulocytes Segmented Neutrophils 79 H Lymphocytes (Manual) 13 L Monocytes (Manual) 6 Eosinophils (Manual) 2 Basophils # Hypochromia 2+ Platelet Estimate NORMAL RBC Morphology ABNORMAL PT INR Sodium 136 L Potassium 3.8 Chloride 102 Carbon Dioxide 27 Anion Gap 10.6 BUN 32 H Creatinine 3.24 H Estimated GFR 15.6 Glucose 148 H POC Glucometer Lactic Acid 1.7 Calcium 8.4 Total Bilirubin 2.80 H AST 49 H ALT 34 Alkaline Phosphatase 183 H Ammonia Troponin I Serum Total Protein 6.2 L Albumin 2.6 L Amylase 185 H Lipase 1597 H Influenza Type A Ag Influenza Type B Ag RSV (PCR) SARS-CoV-2 (PCR) Orders (Last 24 hours) Category Date Time Status Bedrest ROUTINE Activity 10/29/21 23:45 Active Code Status Order ROUTINE Care 10/29/21 21:04 Active Code Status Order ROUTINE Care 10/29/21 23:45 Active EKG-ER Only STAT Care 10/29/21 18:26 Completed Fall Protocol Q1H Care 10/29/21 23:45 Active IV Care Q6H Care 10/29/21 21:04 Active IV Care Q6H Care 10/29/21 23:45 Active Neuro Checks Q4H Care 10/29/21 23:45 Active POCT Glucose Check ACHS Care 10/29/21 23:[address] in Observation ROUTINE Care 10/29/21 23:45 Active Telemetry q6h Care 10/29/21 23:45 Active Weight,Daily 0600 Care 10/29/21 23:45 Active Nutritional Admission Screen ONCE Diet 10/30/21 00:49 Active CHEST 1 VIEW (PORTABLE) Routine Exams 10/30/21 Taken KUB Stat Exams 10/29/21 18:27 Taken AMMONIA Stat Lab 10/29/21 18:56 Completed AMYLASE Stat Lab 10/29/21 18:55 Completed BLOOD CULTURE Stat Lab 10/29/21 19:00 Received CBC W DIFF AM.LAB Lab 10/30/21 04:55 Completed CBC W DIFF Stat Lab 10/29/21 18:55 Completed CMP AM.LAB Lab 10/30/21 04:55 Completed CMP Stat Lab 10/29/21 18:55 Completed LIPASE Stat Lab 10/29/21 18:55 Completed Lactic Acid AM.LAB Lab 10/30/21 05:25 Completed Lactic Acid Stat Lab 10/29/21 18:55 Completed Manual Differential NC Stat Lab 10/29/21 18:55 Completed Occult Blood Stool [FECAL OCCULT BLOOD - SCREENING] Lab 10/29/21 21:09 Ordered Stat POCT GLUCOSE Stat Lab 10/30/21 07:08 Completed PROTIME WITH INR Stat Lab 10/29/21 18:55 Completed TROPONIN Q3H Lab 10/29/21 19:00 Completed TROPONIN Q3H Lab 10/29/21 21:39 Completed UA W/RFX UR CULTURE Stat Lab 10/29/21 18:26 Ordered Ceftriaxone 1 GM/50 ML PREMIX* [ROCEPHIN 1 Gm-D5w 50 ml Med 10/30/21 10:00 Active Bag] 1 g in 50 ml IV Q24H10 Metformin HCl 500 mg [Glucophage 500 MG] Med 10/30/21 08:00 Active 500 mg PO BIDWM Metronidazole 500 mg [Flagyl 500 MG] Med 10/29/21 22:00 Active 250 mg PO TID NaCl 0.9% 1000 ml [Sodium Chloride 0.9% 1000 ML] 1,000 Med 10/29/21 19:10 Discontinued ml .ROUTE UD NaCl 0.9% 1000 ml [Sodium Chloride 0.9% 1000 ML] 1,000 Med 10/29/21 23:45 Active ml IV 100 mls/hr NaCl 0.9% 1000 ml [Sodium Chloride 0.9% 1000 ML] 1,000 Med 10/29/21 18:30 Discontinued ml IV 50 mls/hr OT Screen per Nursing Assess ONCE OT 10/30/21 00:49 Active PT Screen per Nursing Assess ONCE PT 10/30/21 00:49 Active Smoking Cessation Education ONCE RT 10/30/21 00:49 Active Patient Care Notes (Last 24 hours) 10/29/21 23:40 Nursing Note by Gus Shell Patients , Fran, updated patient is being admitted who was agreeable as was her daughter in law, Jen. Initialized on 10/29/21 23:40 - END OF NOTE Code(s): K76.7 - HEPATORENAL SYNDROME (2) Hepatic encephalopathy Current Visit: Yes Status: Acute Code(s): K72.90 - HEPATIC FAILURE, UNSPECIFIED WITHOUT COMA (3) Anasarca Current Visit: No Status: Acute Code(s): R60.1 - GENERALIZED EDEMA (4) Cirrhosis of liver with ascites Current Visit: No Status: Acute Code(s): K74.60 - UNSPECIFIED CIRRHOSIS OF LIVER; R18.8 - OTHER ASCITES
--- NOTE | 2021-10-30 08:36 | XRAY ---
Indication: Vomiting, syncope, and confusion. Comparison: None KUB nonacute and nonobstructed with mild scattered colonic fecal debris and cholecystotomy clips. Solid organs unremarkable. Osseous structures intact with mild/moderate degenerative changes throughout the spine.
--- NOTE | 2021-10-30 08:40 | XRAY ---
Indication: Cough. Comparison: March 01, 2008. Portable chest underinflated with new prominent diffuse interstitial lung markings, pneumonitis versus pulmonary edema. Also new tiny left effusion and right dialysis catheter. Heart not enlarged and bony thorax intact with mild degenerative changes.
[2021-10-30] MEDS ORDERED: ROCEPHIN 1 Gm-D5w 50 ml Bag** 1 G/50 ML IVPB IV SCH ×2 (10:00)
--- NOTE | 2021-10-30 12:47 | PCM.DS ---
Discharge Summary Date of Admission: 10/29/21 23:37 Admitting Physician: MILES MIMS Primary Care Provider: MILES MIMS Allergies Allergies No Known Drug Allergies Allergy (Verified 10/29/21 18:46) Hospital Summary - Hospital Course Hospital Course: Chief Complaint Diagnosis confusion and fall Allergies Allergy/AdvReac Type Severity Reaction Status Date / Time No Known Drug Allergies Allergy Verified 10/29/21 18:46 Vital Signs (Last 24 hours) Temp Pulse Resp BP Pulse Ox 10/30/21 07:24 98.6 F 73 16 128/56 96 10/30/21 04:00 98.4 F 75 16 124/67 95 10/30/21 00:20 98.7 F 76 18 136/60 95 10/29/21 23:34 78 114/69 95 10/29/21 23:33 81 111/73 95 10/29/21 22:06 71 111/73 94 L 10/29/21 21:56 71 18 111/64 94 L 10/29/21 18:24 98.5 F 76 162/83 98 Current Medications Discontinued Medications Generic Name Dose Route Start Last Admin Trade Name Freq PRN Reason Stop Dose Admin Sodium Chloride 1,000 mls @ 50 mls/hr 10/29/21 18:30 10/29/21 19:16 Sodium Chloride 0.9% 1000 Ml IV 11/28/21 18:29 50 mls/hr .Q20H SAWYER Administration Sodium Chloride Confirm 10/29/21 19:10 Sodium Chloride 0.9% 1000 Ml Administered 10/29/21 19:11 Dose 1,000 mls @ ud .ROUTE .STK-MED ONE Sodium Chloride 1,000 mls @ 100 mls/hr 10/29/21 23:45 Sodium Chloride 0.9% 1000 Ml IV 11/28/21 23:44 .Q10H SAWYER Ceftriaxone Sodium/Dextrose 1 g in 50 mls @ 100 mls/hr 10/30/21 10:00 Rocephin 1 Gm-D5w 50 Ml Bag IV 11/02/21 09:59 Q24H10 SAWYER Metformin HCl 500 mg 10/30/21 08:00 Metformin Hcl 500 Mg Tablet PO 11/29/21 07:59 BIDWM SAWYER Metronidazole 250 mg 10/29/21 22:00 Metronidazole 500 Mg Tablet PO 11/28/21 21:59 TID SAWYER Intake & Output (Last 24 hours) 10/28/21 10/29/21 10/30/21 10/31/21 11:59 11:59 11:59 11:59 Intake Total 648 Output Total 200 Balance 448 Weight 123 kg Microbiology Results (Last 24 hours) 10/29/21 19:00 Blood Blood Culture Gram Stain - Pending 10/29/21 19:00 Blood Blood Culture - Pending 10/29/21 18:55 Blood Blood Culture Gram Stain - Pending 10/29/21 18:55 Blood Blood Culture - Pending Laboratory Results (Last 24 hours) 10/30/21 10/30/21 10/30/21 07:08 05:25 04:55 WBC RBC Hgb Hct MCV MCH MCHC RDW Plt Count MPV Gran % Eos # (Auto) Absolute Lymphs (auto) Absolute Monos (auto) Lymphocytes % Monocytes % Eosinophils % Basophils % Absolute Granulocytes Segmented Neutrophils Lymphocytes (Manual) Monocytes (Manual) Eosinophils (Manual) Basophils # Hypochromia Platelet Estimate RBC Morphology PT INR Sodium 137 Potassium 3.7 Chloride 104 Carbon Dioxide 26 Anion Gap 10.8 BUN 34 H Creatinine 3.13 H Estimated GFR 16.3 Glucose 107 H POC Glucometer 97 Lactic Acid 1.2 Calcium 8.5 Total Bilirubin 3.70 H AST 46 H ALT 30 Alkaline Phosphatase 134 H Ammonia Troponin I Serum Total Protein 5.9 L Albumin 2.4 L Amylase Lipase Influenza Type A Ag Influenza Type B Ag RSV (PCR) SARS-CoV-2 (PCR) 10/30/21 10/29/21 10/29/21 04:55 21:39 21:14 WBC 6.9 RBC 2.57 L Hgb 8.3 L Hct 26.9 L MCV 104.7 H MCH 32.3 H MCHC 30.9 L RDW 15.5 H Plt Count 108 L MPV 9.6 Gran % 60.8 Eos # (Auto) 0.22 Absolute Lymphs (auto) 1.48 Absolute Monos (auto) 0.98 Lymphocytes % 21.5 L Monocytes % 14.2 H Eosinophils % 3.2 Basophils % 0.3 Absolute Granulocytes 4.18 Segmented Neutrophils Lymphocytes (Manual) Monocytes (Manual) Eosinophils (Manual) Basophils # 0.02 Hypochromia Platelet Estimate RBC Morphology PT INR Sodium Potassium Chloride Carbon Dioxide Anion Gap BUN Creatinine Estimated GFR Glucose POC Glucometer Lactic Acid Calcium Total Bilirubin AST ALT Alkaline Phosphatase Ammonia Troponin I < 0.012 Serum Total Protein Albumin Amylase Lipase Influenza Type A Ag NEGATIVE Influenza Type B Ag NEGATIVE RSV (PCR) NEGATIVE SARS-CoV-2 (PCR) NEGATIVE 10/29/21 10/29/21 10/29/21 19:00 18:56 18:55 WBC RBC Hgb Hct MCV MCH MCHC RDW Plt Count MPV Gran % Eos # (Auto) Absolute Lymphs (auto) Absolute Monos (auto) Lymphocytes % Monocytes % Eosinophils % Basophils % Absolute Granulocytes Segmented Neutrophils Lymphocytes (Manual) Monocytes (Manual) Eosinophils (Manual) Basophils # Hypochromia Platelet Estimate RBC Morphology PT 21.3 H INR 1.81 Sodium Potassium Chloride Carbon Dioxide Anion Gap BUN Creatinine Estimated GFR Glucose POC Glucometer Lactic Acid Calcium Total Bilirubin AST ALT Alkaline Phosphatase Ammonia 147 H Troponin I < 0.012 Serum Total Protein Albumin Amylase Lipase Influenza Type A Ag Influenza Type B Ag RSV (PCR) SARS-CoV-2 (PCR) 10/29/21 10/29/21 10/29/21 18:55 18:55 18:55 WBC 7.8 RBC 2.80 L Hgb 9.1 L Hct 29.0 L MCV 103.6 H MCH 32.5 H MCHC 31.4 L RDW 15.3 H Plt Count 110 L MPV 9.5 Gran % Eos # (Auto) Absolute Lymphs (auto) Absolute Monos (auto) Lymphocytes % Monocytes % Eosinophils % Basophils % Absolute Granulocytes Segmented Neutrophils 79 H Lymphocytes (Manual) 13 L Monocytes (Manual) 6 Eosinophils (Manual) 2 Basophils # Hypochromia 2+ Platelet Estimate NORMAL RBC Morphology ABNORMAL PT INR Sodium 136 L Potassium 3.8 Chloride 102 Carbon Dioxide 27 Anion Gap 10.6 BUN 32 H Creatinine 3.24 H Estimated GFR 15.6 Glucose 148 H POC Glucometer Lactic Acid 1.7 Calcium 8.4 Total Bilirubin 2.80 H AST 49 H ALT 34 Alkaline Phosphatase 183 H Ammonia Troponin I Serum Total Protein 6.2 L Albumin 2.6 L Amylase 185 H Lipase 1597 H Influenza Type A Ag Influenza Type B Ag RSV (PCR) SARS-CoV-2 (PCR) Orders (Last 24 hours) Category Date Time Status Bedrest ROUTINE Activity 10/29/21 23:45 Completed Code Status Order ROUTINE Care 10/29/21 21:04 Completed Code Status Order ROUTINE Care 10/29/21 23:45 Completed EKG-ER Only STAT Care 10/29/21 18:26 Completed Fall Protocol Q1H Care 10/29/21 23:45 Completed IV Care Q6H Care 10/29/21 21:04 Completed IV Care Q6H Care 10/29/21 23:45 Completed Neuro Checks Q4H Care 10/29/21 23:45 Completed POCT Glucose Check ACHS Care 10/29/21 23:[address] in Observation ROUTINE Care 10/29/21 23:45 Completed Telemetry q6h Care 10/29/21 23:45 Completed Weight,Daily 0600 Care 10/29/21 23:45 Completed House Regular Diet Diet 10/30/21 Breakfast Completed Nutritional Admission Screen ONCE Diet 10/30/21 00:49 Completed Discharge Routine Discharge 10/30/21 Ordered Discharge/Telephone Order Routine Discharge 10/30/21 Active CHEST 1 VIEW (PORTABLE) Routine Exams 10/30/21 Completed KUB Stat Exams 10/29/21 18:27 Completed AMMONIA Stat Lab 10/29/21 18:56 Completed AMYLASE Stat Lab 10/29/21 18:55 Completed BLOOD CULTURE Stat Lab 10/29/21 19:00 Received CBC W DIFF AM.LAB Lab 10/30/21 04:55 Completed CBC W DIFF Stat Lab 10/29/21 18:55 Completed CMP AM.LAB Lab 10/30/21 04:55 Completed CMP Stat Lab 10/29/21 18:55 Completed LIPASE Stat Lab 10/29/21 18:55 Completed Lactic Acid AM.LAB Lab 10/30/21 05:25 Completed Lactic Acid Stat Lab 10/29/21 18:55 Completed Manual Differential NC Stat Lab 10/29/21 18:55 Completed Occult Blood Stool [FECAL OCCULT BLOOD - SCREENING] Lab 10/29/21 21:09 Ordered Stat POCT GLUCOSE Stat Lab 10/30/21 07:08 Completed PROTIME WITH INR Stat Lab 10/29/21 18:55 Completed TROPONIN Q3H Lab 10/29/21 19:00 Completed TROPONIN Q3H Lab 10/29/21 21:39 Completed UA W/RFX UR CULTURE Stat Lab 10/29/21 18:26 Ordered Ceftriaxone 1 GM/50 ML PREMIX* [ROCEPHIN 1 Gm-D5w 50 ml Med 10/30/21 10:00 Discontinued Bag] 1 g in 50 ml IV Q24H10 Metformin HCl 500 mg [Glucophage 500 MG] Med 10/30/21 08:00 Discontinued 500 mg PO BIDWM Metronidazole 500 mg [Flagyl 500 MG] Med 10/29/21 22:00 Discontinued 250 mg PO TID NaCl 0.9% 1000 ml [Sodium Chloride 0.9% 1000 ML] 1,000 Med 10/29/21 19:10 Discontinued ml .ROUTE UD NaCl 0.9% 1000 ml [Sodium Chloride 0.9% 1000 ML] 1,000 Med 10/29/21 23:45 Discontinued ml IV 100 mls/hr NaCl 0.9% 1000 ml [Sodium Chloride 0.9% 1000 ML] 1,000 Med 10/29/21 18:30 Discontinued ml IV 50 mls/hr OT Screen per Nursing Assess ONCE OT 10/30/21 00:49 Completed PT Screen per Nursing Assess ONCE PT 10/30/21 00:49 Completed Smoking Cessation Education ONCE RT 10/30/21 00:49 Completed Patient Care Notes (Last 24 hours) 10/30/21 10:22 Nursing Note by Isaura Cheney patient left with on discharge -- leaving to go to dialysis. No changes to home medications, verbalizes understanding and states she has an appointment with Dr. Mims on Initialized on 10/30/21 10:22 - END OF NOTE 10/29/21 23:40 Nursing Note by Gus Shell Patients , Fran, updated patient is being admitted who was agreeable as was her daughter in law, Jen. Initialized on 10/29/21 23:40 - END OF NOTE - Vitals & Intake/Output Vital Signs: Vital Signs Temperature 98.6 F 10/30/21 07:24 Pulse Rate 73 10/30/21 07:24 Respiratory Rate 16 10/30/21 07:24 Blood Pressure 128/56 10/30/21 07:24 O2 Sat by Pulse Oximetry 96 10/30/21 07:24 Intake & Output: Intake & Output 10/28/21 10/29/21 10/30/21 10/31/21 11:59 11:59 11:59 11:59 Intake Total 648 Output Total 200 Balance 448 Weight 123 kg - Lab Result Diagrams: 10/30/21 04:55 10/30/21 04:55 Lab Results-Last 24 Hrs: Lab Results-Last 24 Hours 10/29/21 10/29/21 10/29/21 Range/Units 18:55 18:55 18:55 WBC 7.8 (4.0-10.5) K/mm3 RBC 2.80 L (4.1-5.4) M/mm3 Hgb 9.1 L (12.0-16.0) gm/dl Hct 29.0 L (35-47) % MCV 103.6 H (78-100) fl MCH 32.5 H (26-32) pg MCHC 31.4 L (32-36) g/dl RDW 15.3 H (11.5-14.0) % Plt Count 110 L (150-450) K/mm3 MPV 9.5 (7.5-11.0) fl Gran % (36.0-66.0) % Eos # (Auto) (0-0.5) Absolute Lymphs (auto) (1.0-4.6) Absolute Monos (auto) (0.0-1.3) Lymphocytes % (24.0-44.0) % Monocytes % (0.0-12.0) % Eosinophils % (0.00-5.0) % Basophils % (0.0-0.4) % Absolute Granulocytes (1.4-6.9) Segmented Neutrophils 79 H (36.0-66.0) % Lymphocytes (Manual) 13 L (24-44) % Monocytes (Manual) 6 (0.0-12.0) % Eosinophils (Manual) 2 (0.00-3.0) % Basophils # (0-0.4) Hypochromia 2+ Platelet Estimate NORMAL (NORMAL) RBC Morphology ABNORMAL PT (9.4-12.5) SECONDS INR (0.8-3.0) Sodium 136 L (137-145) mmol/L Potassium 3.8 (3.5-5.1) mmol/L Chloride 102 (98-107) mmol/L Carbon Dioxide 27 (22-30) mmol/L Anion Gap 10.6 (5-15) MEQ/L BUN 32 H (7-17) mg/dL Creatinine 3.24 H (0.52-1.04) mg/dL Estimated GFR 15.6 ML/MIN Glucose 148 H (74-106) mg/dL POC Glucometer (74 to 106) mg/dL Lactic Acid 1.7 (0.4-2.0) Calcium 8.4 (8.4-10.2) mg/dL Total Bilirubin 2.80 H (0.2-1.3) mg/dL AST 49 H (14-36) U/L ALT 34 (0-35) U/L Alkaline Phosphatase 183 H (38-126) U/L Ammonia (9-30) umol/L Troponin I (0.000-0.034) ng/mL Serum Total Protein 6.2 L (6.3-8.2) g/dL Albumin 2.6 L (3.5-5.0) g/dL Amylase 185 H (30-110) U/L Lipase 1597 H (23-300) U/L Influenza Type A Ag (NEGATIVE) Influenza Type B Ag (NEGATIVE) RSV (PCR) (Negative) SARS-CoV-2 (PCR) (NEGATIVE) 10/29/21 10/29/21 10/29/21 Range/Units 18:55 18:56 19:00 WBC (4.0-10.5) K/mm3 RBC (4.1-5.4) M/mm3 Hgb (12.0-16.0) gm/dl Hct (35-47) % MCV (78-100) fl MCH (26-32) pg MCHC (32-36) g/dl RDW (11.5-14.0) % Plt Count (150-450) K/mm3 MPV (7.5-11.0) fl Gran % (36.0-66.0) % Eos # (Auto) (0-0.5) Absolute Lymphs (auto) (1.0-4.6) Absolute Monos (auto) (0.0-1.3) Lymphocytes % (24.0-44.0) % Monocytes % (0.0-12.0) % Eosinophils % (0.00-5.0) % Basophils % (0.0-0.4) % Absolute Granulocytes (1.4-6.9) Segmented Neutrophils (36.0-66.0) % Lymphocytes (Manual) (24-44) % Monocytes (Manual) (0.0-12.0) % Eosinophils (Manual) (0.00-3.0) % Basophils # (0-0.4) Hypochromia Platelet Estimate (NORMAL) RBC Morphology PT 21.3 H (9.4-12.5) SECONDS INR 1.81 (0.8-3.0) Sodium (137-145) mmol/L Potassium (3.5-5.1) mmol/L Chloride (98-107) mmol/L Carbon Dioxide (22-30) mmol/L Anion Gap (5-15) MEQ/L BUN (7-17) mg/dL Creatinine (0.52-1.04) mg/dL Estimated GFR ML/MIN Glucose (74-106) mg/dL POC Glucometer (74 to 106) mg/dL Lactic Acid (0.4-2.0) Calcium (8.4-10.2) mg/dL Total Bilirubin (0.2-1.3) mg/dL AST (14-36) U/L ALT (0-35) U/L Alkaline Phosphatase (38-126) U/L Ammonia 147 H (9-30) umol/L Troponin I < 0.012 (0.000-0.034) ng/mL Serum Total Protein (6.3-8.2) g/dL Albumin (3.5-5.0) g/dL Amylase (30-110) U/L Lipase (23-300) U/L Influenza Type A Ag (NEGATIVE) Influenza Type B Ag (NEGATIVE) RSV (PCR) (Negative) SARS-CoV-2 (PCR) (NEGATIVE) 10/29/21 10/29/21 10/30/21 Range/Units 21:14 21:39 04:55 WBC 6.9 (4.0-10.5) K/mm3 RBC 2.57 L (4.1-5.4) M/mm3 Hgb 8.3 L (12.0-16.0) gm/dl Hct 26.9 L (35-47) % MCV 104.7 H (78-100) fl MCH 32.3 H (26-32) pg MCHC 30.9 L (32-36) g/dl RDW 15.5 H (11.5-14.0) % Plt Count 108 L (150-450) K/mm3 MPV 9.6 (7.5-11.0) fl Gran % 60.8 (36.0-66.0) % Eos # (Auto) 0.22 (0-0.5) Absolute Lymphs (auto) 1.48 (1.0-4.6) Absolute Monos (auto) 0.98 (0.0-1.3) Lymphocytes % 21.5 L (24.0-44.0) % Monocytes % 14.2 H (0.0-12.0) % Eosinophils % 3.2 (0.00-5.0) % Basophils % 0.3 (0.0-0.4) % Absolute Granulocytes 4.18 (1.4-6.9) Segmented Neutrophils (36.0-66.0) % Lymphocytes (Manual) (24-44) % Monocytes (Manual) (0.0-12.0) % Eosinophils (Manual) (0.00-3.0) % Basophils # 0.02 (0-0.4) Hypochromia Platelet Estimate (NORMAL) RBC Morphology PT (9.4-12.5) SECONDS INR (0.8-3.0) Sodium (137-145) mmol/L Potassium (3.5-5.1) mmol/L Chloride (98-107) mmol/L Carbon Dioxide (22-30) mmol/L Anion Gap (5-15) MEQ/L BUN (7-17) mg/dL Creatinine (0.52-1.04) mg/dL Estimated GFR ML/MIN Glucose (74-106) mg/dL POC Glucometer (74 to 106) mg/dL Lactic Acid (0.4-2.0) Calcium (8.4-10.2) mg/dL Total Bilirubin (0.2-1.3) mg/dL AST (14-36) U/L ALT (0-35) U/L Alkaline Phosphatase (38-126) U/L Ammonia (9-30) umol/L Troponin I < 0.012 (0.000-0.034) ng/mL Serum Total Protein (6.3-8.2) g/dL Albumin (3.5-5.0) g/dL Amylase (30-110) U/L Lipase (23-300) U/L Influenza Type A Ag NEGATIVE (NEGATIVE) Influenza Type B Ag NEGATIVE (NEGATIVE) RSV (PCR) NEGATIVE (Negative) SARS-CoV-2 (PCR) NEGATIVE (NEGATIVE) 10/30/21 10/30/21 10/30/21 Range/Units 04:55 05:25 07:08 WBC (4.0-10.5) K/mm3 RBC (4.1-5.4) M/mm3 Hgb (12.0-16.0) gm/dl Hct (35-47) % MCV (78-100) fl MCH (26-32) pg MCHC (32-36) g/dl RDW (11.5-14.0) % Plt Count (150-450) K/mm3 MPV (7.5-11.0) fl Gran % (36.0-66.0) % Eos # (Auto) (0-0.5) Absolute Lymphs (auto) (1.0-4.6) Absolute Monos (auto) (0.0-1.3) Lymphocytes % (24.0-44.0) % Monocytes % (0.0-12.0) % Eosinophils % (0.00-5.0) % Basophils % (0.0-0.4) % Absolute Granulocytes (1.4-6.9) Segmented Neutrophils (36.0-66.0) % Lymphocytes (Manual) (24-44) % Monocytes (Manual) (0.0-12.0) % Eosinophils (Manual) (0.00-3.0) % Basophils # (0-0.4) Hypochromia Platelet Estimate (NORMAL) RBC Morphology PT (9.4-12.5) SECONDS INR (0.8-3.0) Sodium 137 (137-145) mmol/L Potassium 3.7 (3.5-5.1) mmol/L Chloride 104 (98-107) mmol/L Carbon Dioxide 26 (22-30) mmol/L Anion Gap 10.8 (5-15) MEQ/L BUN 34 H (7-17) mg/dL Creatinine 3.13 H (0.52-1.04) mg/dL Estimated GFR 16.3 ML/MIN Glucose 107 H (74-106) mg/dL POC Glucometer 97 (74 to 106) mg/dL Lactic Acid 1.2 (0.4-2.0) Calcium 8.5 (8.4-10.2) mg/dL Total Bilirubin 3.70 H (0.2-1.3) mg/dL AST 46 H (14-36) U/L ALT 30 (0-35) U/L Alkaline Phosphatase 134 H (38-126) U/L Ammonia (9-30) umol/L Troponin I (0.000-0.034) ng/mL Serum Total Protein 5.9 L (6.3-8.2) g/dL Albumin 2.4 L (3.5-5.0) g/dL Amylase (30-110) U/L Lipase (23-300) U/L Influenza Type A Ag (NEGATIVE) Influenza Type B Ag (NEGATIVE) RSV (PCR) (Negative) SARS-CoV-2 (PCR) (NEGATIVE) Micro Results-Entire Visit: Accuchecks Date 10/29/21 Time 18:28 - Radiology Exams Ordered Rad Exams-Entire Visit: Radiology Procedures Category Date Time Status CHEST 1 VIEW (PORTABLE) Routine Exams 10/30/21 Completed KUB Stat Exams 10/29/21 18:27 Completed - Procedures and Test Procedures and Tests throughout Hospitalization: Therapy Orders & Screens 10/30/21 00:49 OT Screen per Nursing Assess ONCE Comment: Protocol Order Physician Instructions: Greater than 3 points order OT Admission Screening Reason For Exam: Triggered on Admission Diagnosis: hepatic encephalopathy Open Wound/Cellutlitis/Pressure Ulcers: No Acute Fx/ORIF/Change in wt bearing status: No Severe MUSCULOSKELETAL pain: No ADL Dysfunction: Yes Acute CVA w/Hemiparesis/Hemiplegia: No Decreased Functional Mobility/Strength: Yes Sprain/Strain: No Acute Post-op Mobility Dysfunction: No Total Points: 4 PT Screen per Nursing Assess ONCE Comment: Protocol Order Physician Instructions: Greater than 3 points order PT Admission Screenin Reason For Exam: Triggered on Admission Diagnosis: hepatic encephalopathy Open Wound/Cellutlitis/Pressure Ulcers: No Acute Fx/ORIF/Change in wt bearing status: No Severe MUSCULOSKELETAL pain: No ADL Dysfunction: Yes Acute CVA w/Hemiparesis/Hemiplegia: No Decreased Functional Mobility/Strength: Yes Sprain/Strain: No Acute Post-op Mobility Dysfunction: No Total Points: 4 Smoking Cessation Education ONCE Comment: Diagnosis: hepatic encephalopathy Smoking Status: Current every day smoker Have you smoked in the past 12 months: Yes Do you dip or chew tobacco: No Discharge Exam General Appearance: no apparent distress, alert Neurologic Exam: alert, oriented x 3, cooperative, normal mood/affect, nml cerebellar function, sensation nml, No motor deficits Eye Exam: PERRL, EOMI, eyes nml inspection Ears, Nose, Throat Exam: normal ENT inspection, pharynx normal, moist mucous me mbranes Neck Exam: normal inspection, non-tender, supple, full range of motion Respiratory Exam: diminished breath sounds, crackles/rales, No respiratory distress Cardiovascular Exam: regular rate/rhythm, normal heart sounds Gastrointestinal/Abdomen Exam: soft, No tenderness, No mass Pelvic Exam: deferred Rectal Exam: deferred Back Exam: normal inspection, normal range of motion, No CVA tenderness, No vertebral tenderness Extremity Exam: normal inspection, normal range of motion Skin Exam: normal color, warm, dry Final Diagnosis/Problem List - Final Discharge Diagnosis/Problem (1) Hepatorenal failure Status: Chronic Code(s): K76.7 - HEPATORENAL SYNDROME (2) Hepatic encephalopathy Status: Resolved Code(s): K72.90 - HEPATIC FAILURE, UNSPECIFIED WITHOUT COMA (3) Anasarca Status: Chronic Code(s): R60.1 - GENERALIZED EDEMA (4) Cirrhosis of liver with ascites Status: Chronic Code(s): K74.60 - UNSPECIFIED CIRRHOSIS OF LIVER; R18.8 - OTHER ASCITES - Discharge Discharge Date: 10/30/21 Disposition: Home, Self-Care Condition: Stable Prescriptions: No Action Gabapentin [Neurontin] 600 mg PO HS Citalopram Hydrobromide 20 mg* [ceLEXa 20 MG] 20 mg PO DAILY clonazePAM [Clonazepam] 1 mg PO HS Lisinopril 5 mg [Zestril 5 MG] 5 mg PO DAILY Glimepiride 4 mg [Amaryl 4 mg] 6 mg PO DAILY Insulin Glargine,Hum.rec.anlog [Toujeo Max Solostar] 60 unit SQ HS Metformin HCl 500 mg [Glucophage 500 MG] 1,000 mg PO BIDWM Instructions: Hepatic Encephalopathy (DC) Additional Instructions: follow up with Dr Mims on at your scheduled appointment THE INSURANCE NAVIGATOR'S INFORMATION IS DANIEL ARORA- [phone]
== END 2021-10-30 10:00 | disposition home or self-care (01) ==
LOC: ED 18:21 → MED SURG 23:37
PROVIDERS: ADMIT General Practice; ATTEND General Practice
DX: K76.7 Hepatorenal syndrome (principal); K72.90 Hepatic failure, unspecified without coma; K74.60 Unspecified cirrhosis of liver; R18.8 Other ascites; I10 Essential (primary) hypertension; E11.9 Type 2 diabetes mellitus without complications; E78.5 Hyperlipidemia, unspecified; R41.0 Disorientation, unspecified; E66.9 Obesity, unspecified; F17.200 Nicotine dependence, unspecified, uncomplicated; W18.30XA Fall on same level, unspecified, initial encounter; Z79.899 Other long term (current) drug therapy; Z20.828 Contact with and (suspected) exposure to other viral communicable diseases
CPT/HCPCS: 0241U; 36000; 36415; 71045; 74018; 80053; 82140; 82150; 82947; 83605; 83690; 84484; 85025; 85610; 87040; 93005; 93268; 99285; G0378